=== PATIENT | female | born 1960 | race Caucasian/White ===

== ENCOUNTER 2020-10-06 21:06 | Emergency (ER) | payer OTHER ==
[~2020-10-06] VITALS: Ht 160 cm; Wt 75.3 kg
[2020-10-06 21:52] LABS: URINE BILIRUBIN NEGATIVE (Negative); URINE BLOOD NEGATIVE (Negative); URINE CLARITY CLEAR; URINE COLOR YELLOW; URINE GLUCOSE-RANDOM NEGATIVE (Negative); URINE KETONES NEGATIVE (Negative); URINE LEUKOCYTES-REFLEX NEGATIVE (Negative); URINE NITRITE-REFLEX NEGATIVE (Negative); URINE PROTEIN NEGATIVE (Negative); URINE SPECIFIC GRAVITY 1.025 (1.005-1.030); URINE UROBILINOGEN 0.2 E.U./dl (0.2-1.0)
[2020-10-06 22:04] LABS: HEMOGLOBIN 13.3 gm/dL (12.0-15.0); MCH 28.8 pg (26.0-34.0); MCHC 34.2 g/dL (28.0-37.0); MCV 84.4 fL (80.0-100.0); MPV 8.5 fl. (7.2-11.1); NUCLEATED RBCS 0 /100WBC; PLATELET COUNT* 225 thou/uL (150-400); RBC 4.62 mil/uL (4.20-5.00); RDW-CV 13.8 % (10.5-14.5); WBC 11.1 thou/uL (4.0-11.0)
[2020-10-06 22:13] LABS: CALCIUM 8.9 mg/dL (8.5-10.1); CREATININE 1.2 mg/dL (0.6-1.3)
[2020-10-06 22:23] LABS: ALBUMIN 3.6 g/dL (3.4-5.0); TOTAL BILIRUBIN 0.4 mg/dL (<0.1-1.0); TOTAL PROTEIN 7.2 g/dL (6.4-8.2)
[2020-10-06 22:30] LABS: ABSOLUTE LYMPHOCYTES 0.8 thou/uL (0.8-5.3); ABSOLUTE MONOCYTES 0.1 thou/uL (0.0-1.2); ABSOLUTE NEUTROPHILS 10.2 thou/uL (1.6-8.1)
[2020-10-06 22:31] LABS: PLATELET ESTIMATE ADEQUATE
[2020-10-06] MEDS ORDERED: CARAFATE 1 GM TA1 GM PO (23:51)
[2020-10-06] MEDS ORDERED: ZOFRAN ODT4 MG PO (23:51)
[2020-10-06] MEDS ORDERED: ULTRAM 50MG TAB50 MG PO (23:51)
[2020-10-07 00:04] VITALS: BP 120/71
== END 2020-10-07 00:04 | disposition home or self-care (01) ==
LOC: M.ERS 21:06
PROVIDERS: Personal Emergency Response Attendant
DX: R10.13 Epigastric pain (principal); R10.31 Right lower quadrant pain; R10.32 Left lower quadrant pain; I10 Essential (primary) hypertension; E03.9 Hypothyroidism, unspecified

== ENCOUNTER → 2020-10-07 | Outpatient (CLI) | payer OTHER ==
[~2020-10-07] MED LIST: CARAFATE 1 GM TA1 GM PO; ULTRAM 50MG TAB50 MG PO; ZOFRAN ODT4 MG PO
== END ==
LOC: M.ULTRA 13:50
PROVIDERS: ATTEND Internal Medicine
DX: K80.80 Other cholelithiasis without obstruction (principal)

== ENCOUNTER → 2020-10-26 | Outpatient (CLI) | payer OTHER ==
[~2020-10-26] MED LIST changes: +EUTHYROX100 MCG PO; +TRIAMTERENE-HC1 EAC2 PO
== END ==
LOC: M.LAB 15:25
PROVIDERS: ATTEND Surgery
DX: Z01.812 Encounter for preprocedural laboratory examination (principal); Z20.822 Contact with and (suspected) exposure to COVID-19; K80.20 Calculus of gallbladder without cholecystitis without obstruction

== ENCOUNTER → 2020-10-30 | Day surgery (SDC) | payer OTHER ==
[~2020-10-30] MED LIST changes: +HYDROCODON-ACE1 EAC7 PO
--- NOTE | ~2020-10-30 | OP ---
[facility] [address] [place] [address] OPERATIVE REPORT Name: LOWELL WINTERS Room: [facility]#: [id number] Admission: 10/30/20 Attend Phys: Miguel Carlson Discharge: Date of : 62 Report #: [id number] THIS REPORT FOR: cc: Nikki Costello MD, Lin W. MD ~ Miguel Carlson MD DATE OF SERVICE: 10/30/2020 PREOPERATIVE DIAGNOSIS: Symptomatic cholelithiasis. POSTOPERATIVE DIAGNOSIS: Symptomatic cholelithiasis. OPERATION: Laparoscopic cholecystectomy. SURGEON: Miguel Carlson MD. ANESTHESIA: General. ESTIMATED BLOOD LOSS: Minimal. SPECIMEN: Gallbladder. DESCRIPTION OF PROCEDURE: After informed consent was obtained, the patient was brought to the operating room and placed supine. SCDs were placed and working, preoperative antibiotics were administered, general anesthesia was induced. The abdomen was prepped and draped in the usual sterile fashion. A 10 mm incision was made below the umbilicus. Fascia was incised and a trocar was placed. Pneumoperitoneum was established. Three right upper quadrant 5 mm ports were placed. Gallbladder was grasped at the fundus and retracted cephalad. Infundibulum was grasped and retracted laterally. I dissected out the cystic duct and cystic artery. Cystic duct and artery were clipped and ligated leaving 2 clips on the remaining duct and 1 on the remaining artery. Gallbladder was then taken off the liver bed with electrocautery. It was placed into an Endopouch and removed. The fascia was then closed with a [id number] 0 Vicryl. Skin was closed with 4-0 Monocryl. Incisions were sealed with Steri-Strips. COMPLICATIONS: None. DISPOSITION: The patient was taken to recovery in satisfactory condition. By: 1020 1024Jojavier Carlson MD /nt
[2020-10-30 07:34] LABS: CREATININE 1.2 mg/dL (0.6-1.3); POTASSIUM 3.2 mmol/L (3.5-5.1)
[2020-10-30 07:39] LABS: ALBUMIN 3.8 g/dL (3.4-5.0); TOTAL BILIRUBIN 0.4 mg/dL (<0.1-1.0); TOTAL PROTEIN 7.7 g/dL (6.4-8.2)
--- NOTE | 2020-10-30 14:41 | EKG ---
[place] [address] ELECTROCARDIOGRAM REPORT Name: LOWELL WINTERS Room: [facility]#: [id number] Admission: 10/30/20 Attend Phys: Miguel Parker Discharge: Date of : 62 Date of Service: 10/30/2033 Report #: [id number] THIS REPORT FOR: //name// [facility] Test Date: 2020-10-30 Test Time: 07:33:32 Pat Name: LOWELL WINTERS Department: Room: Gender: F Nurse Wound: : 1960 Requested By: Miguel Carlson Order Number: [id number] Reading MD: Clay Moore Measurements Intervals [place] Rate: 65 P: 52 CT: 144 QRS: 2 QRSD: 102 T: 31 QT: 405 QTc: 422 Interpretive Statements Sinus rhythm Low voltage, precordial leads No previous ECG available for comparison Electronically Signed On 10-30-2020 14:40:59 UNIT RECEPTIONIST by Clay Moore [email or web address] <ELECTRONICALLY SIGNED> By: Clay Moore MD, [facility] 10/30/20 1440 2 2 Clay Moore MD, [facility] /EPI
== END | disposition home or self-care (01) ==
LOC: M.SUR 06:56
PROVIDERS: ATTEND Surgery
DX: K80.20 Calculus of gallbladder without cholecystitis without obstruction (principal); R10.11 Right upper quadrant pain; I10 Essential (primary) hypertension; E03.9 Hypothyroidism, unspecified; Z98.890 Other specified postprocedural states; Z79.899 Other long term (current) drug therapy